=== PATIENT | male | born 1995 ===

== ENCOUNTER 2018-10-06 10:55 | Emergency (ER) | payer MEDICAID ==
[2018-10-06 11:03] VITALS: RESP 18; O2SAT 100
--- NOTE | 2018-10-06 11:47 | C.PDOC ---
History Of Present Illness 23 y/o male presents to ED for evaluation of umbilical pain x 5 days. Patient states he visited his primary care doctor, Dr. Snyder, who told him to get MRI. Patient not given any antibiotics. MRI appointment is on 10/11/18. He reports drainage today and is the reason for his ED visit. He denies trauma/injury, fever, chills, headache, dizziness, chest pain, SOB, nausea, or vomiting. Time Seen by Provider: 10/06/18 11:06 Chief Complaint (Nursing): Abnormal Skin Integrity History Per: Patient History/Exam Limitations: no limitations Onset/Duration Of Symptoms: Days Current Symptoms Are (Timing): Still Present Past Medical History Reviewed: Historical Data, Nursing Documentation, Vital Signs Vital Signs: Last Vital Signs Temp 98.4 F 10/06/18 11:00 Pulse 96 H 10/06/18 11:00 Resp 18 10/06/18 11:00 BP 138/92 H 10/06/18 11:00 Pulse Ox 100 10/06/18 11:00 Family History: States: No Known Family Hx - Social History Hx Tobacco Use: No Hx Alcohol Use: No Hx Substance Use: No - Immunization History Hx Tetanus Toxoid Vaccination: No Hx Influenza Vaccination: No Hx Pneumococcal Vaccination: No Review Of Systems Constitutional: Negative for: Fever, Chills Gastrointestinal: Positive for: Abdominal Pain. Negative for: Nausea, Vomiting, Diarrhea Skin: Positive for: Other (umbilical pain with drainage). Negative for: Rash Neurological: Negative for: Weakness, Headache Physical Exam - Physical Exam Appears: Non-toxic, No Acute Distress Skin: Warm, Dry Head: Atraumatic, Normacephalic Eye(s): bilateral: Normal Inspection Neck: Normal ROM, Supple Chest: Symmetrical Cardiovascular: Rhythm Regular, No Murmur Respiratory: Normal Breath Sounds, No Wheezing Gastrointestinal/Abdominal: Soft, No Guarding, No Rebound, Other (purulent drainage from the inferior umbilicus, no surrounding erythema; induration noted upon palpation surrounding the umbilicus possibly due to abscess formation) Extremity: Bilateral: Atraumatic, Normal Color And Temperature, Normal ROM Neurological/Psych: Oriented x3, Normal Speech, Normal Motor, Normal Sensation Gait: Steady ED Course And Treatment O2 Sat by Pulse Oximetry: 100 (RA) Pulse Ox Interpretation: Normal Medical Decision Making Medical Decision Making: Patient offered I&D but patient refused, would prefer to take antibiotics and pain medication. Wound culture collected and sent to lab. Dose of Clindamycin and Tylenol given now Contacted Dr. Snyder and left a message; call was not returned Patient instructed to follow up with PMD. Patient has a pending appointment for MRI ordered by Dr. Snyder for 10/11/18. patient stable for discharge Disposition Counseled Patient/Family Regarding: Studies Performed, Diagnosis, Need For Followup, Rx Given - Disposition Referrals: Zeeshan Snyder, JOAN, PRETZEL TWISTING MACHINE OPERATOR [Advanced Practice Nurse] - Disposition: HOME/ ROUTINE Disposition Time: 12:15 Condition: STABLE Additional Instructions: Continue meds as prescribed Clean wound clean and dry Keep scheduled appt for MRI but follow up with Dr. Snyder to see if this is still necessary Return to ED if symptoms worsen Prescriptions: Acetaminophen [Tylenol] 650 mg PO Q8 PRN #30 capsule PRN Reason: Pain, Moderate (4-7) Clindamycin [Cleocin] 300 mg PO TID 10 Days #29 cap Instructions: Skin Abscess Forms: [employer] (Norwegian) - Clinical Impression Clinical Impression: Skin irritation, Umbilical pain, Abscess - PA / TURNING SANDER OPERATOR / Resident Statement MD/DO has reviewed & agrees with the documentation as recorded. - Scribe Statement The provider has reviewed the documentation as recorded by the Alexibgonzales El All medical record entries made by the Nori were at my direction and personally dictated by me. I have reviewed the chart and agree that the record accurately reflects my personal performance of the history, physical exam, medical decision making, and the department course for this patient. I have also personally directed, reviewed, and agree with the discharge instructions and disposition.
--- NOTE | 2018-10-06 12:10 | C.PDOC ---
Time Seen by Provider: 10/06/18 11:06 Chief Complaint (Nursing): Abnormal Skin Integrity Past Medical History Vital Signs: Last Vital Signs Temp 98.4 F 10/06/18 11:00 Pulse 96 H 10/06/18 11:00 Resp 18 10/06/18 11:00 BP 138/92 H 10/06/18 11:00 Pulse Ox 100 10/06/18 12:01 Family History: States: No Known Family Hx - Social History Hx Tobacco Use: No Hx Alcohol Use: No Hx Substance Use: No - Immunization History Hx Tetanus Toxoid Vaccination: No Hx Influenza Vaccination: No Hx Pneumococcal Vaccination: No ED Course And Treatment O2 Sat by Pulse Oximetry: 100 (RA) Disposition Counseled Patient/Family Regarding: Studies Performed, Diagnosis, Need For Followup, Rx Given - Disposition Referrals: Zeeshan Snyder, JOAN, THEATRICAL DRESSER [Advanced Practice Nurse] - Disposition: HOME/ ROUTINE Disposition Time: 12:04 Condition: STABLE Additional Instructions: Continue meds as prescribed Clean wound clean and dry Keep scheduled appt for MRI but follow up with Dr. Snyder to see if this is still necessary Return to ED if symptoms worsen Prescriptions: Acetaminophen [Tylenol] 650 mg PO Q8 PRN #30 capsule PRN Reason: Pain, Moderate (4-7) Clindamycin [Cleocin] 300 mg PO TID 10 Days #29 cap Instructions: Skin Abscess Forms: [employer] (Mongolian) - Clinical Impression Clinical Impression: Skin irritation, Umbilical pain, Abscess
[2018-10-06 12:14] VITALS: BP 113/71; PULSE 85; TEMP 98.5
== END 2018-10-06 12:17 | disposition home or self-care (01) ==
LOC: C.ER 10:55
DX: R10.33 Periumbilical pain (principal); L02.211 Cutaneous abscess of abdominal wall; L29.9 Pruritus, unspecified

== ENCOUNTER 2018-10-13 17:19 | Emergency (ER) | payer MEDICAID ==
[2018-10-13 17:31] VITALS: TEMP 98.8; O2SAT 100
[2018-10-13] MEDS ORDERED: Lidocaine 2% PF (10 ml) Amp EPI STA (17:48)
[2018-10-13] MEDS ORDERED: Lidocaine Hydrochloride 5 ML INJ ONE ×2 (17:53→19:01)
--- NOTE | 2018-10-13 20:22 | C.PDOC ---
History Of Present Illness 23 year old male returns to the emergency department with complaints of pain and distention to belly button despite antibiotic treatment last week. He states that his symptoms worsening noting protrusion of umbilicus and continued drainage. Patient denies following-up with a PMD or getting an MRI due to lack of prior authorization. He denies any other complaints. Of note, patient refused I&D on previous visit. Chief Complaint (Nursing): Abnormal Skin Integrity History Per: Patient History/Exam Limitations: no limitations Onset/Duration Of Symptoms: Days Current Symptoms Are (Timing): Worse Location Of Injury: Anterior: Abdomen Quality Of Symptoms: Painful, Swollen, Draining. denies: Itching Past Medical History Reviewed: Historical Data, Nursing Documentation, Vital Signs Vital Signs: Last Vital Signs Temp 98.8 F 10/13/18 17:29 Pulse 82 10/13/18 17:29 Resp 18 10/13/18 17:29 BP 133/57 L 10/13/18 17:29 Pulse Ox 100 10/13/18 17:29 Primary Care Provider: Non [facility] Provider, - Medical History PMH: No Chronic Diseases Surgical History: No Surg Hx Family History: States: No Known Family Hx - Social History Hx Tobacco Use: No Hx Alcohol Use: No Hx Substance Use: No - Immunization History Hx Tetanus Toxoid Vaccination: No Hx Influenza Vaccination: No Hx Pneumococcal Vaccination: No Review Of Systems Constitutional: Negative for: Fever, Chills Cardiovascular: Negative for: Chest Pain Respiratory: Negative for: Cough, Shortness of Breath Gastrointestinal: Negative for: Nausea, Vomiting, Abdominal Pain, Diarrhea Genitourinary: Negative for: Dysuria, Incontinence Musculoskeletal: Negative for: Back Pain Skin: Positive for: Other (abscess). Negative for: Rash, Bruising Neurological: Negative for: Weakness, Headache, Dizziness Physical Exam - Physical Exam Appears: Non-toxic, No Acute Distress Skin: Warm, Dry Head: Atraumatic, Normacephalic Eye(s): bilateral: Normal Inspection Oral Mucosa: Moist Neck: Normal ROM, Supple Chest: Symmetrical Cardiovascular: Rhythm Regular Respiratory: Normal Breath Sounds, No Wheezing Gastrointestinal/Abdominal: Tenderness (to palpation at the umbilicus), Distention (of umbilicus, possible due to abscess or sebaceous cyst. ), No Guarding, No Rebound, Other (slight erythema to the umbilicus, scant drainage noted inferiorly at the base of the umbilicus; induration noted as well surrounding umbilicus) Extremity: Normal ROM Extremity: Bilateral: Atraumatic Neurological/Psych: Oriented x3, Normal Speech, Normal Cognition, Normal Motor, Normal Sensation Gait: Steady ED Course And Treatment O2 Sat by Pulse Oximetry: 100 (RA) Pulse Ox Interpretation: Normal - Incision & Drainage Of Abscess Anesthesia: Lidocaine 1% Prep Used: Sterile Water, Betadine Procedure: Incised W/Scalpel Blade#: (15), Drained Pus, Probed To Break Up L oculations, Packed W/Gauze, Cultures Obtained And Sent To Lab (on last visit - Strep anginosus grew- more sensitive to Cephalosporins- will switch to Keflex) Medical Decision Making Medical Decision Making: Plan:Tylenol given I&D performed by myself and Dr. Durbin Patient still experiencing pain Toradol 60m IM given Keflex 500mg PO given based on wound culture Patient advised to discontinue other antibiotics recommended probiotics patient to return in 2 days for wound check Patient verbalizes understanding and is in agreement with plan. Patient is stable for discharge. Disposition Counseled Patient/Family Regarding: Diagnosis, Need For Followup, Rx Given - Disposition Referrals: Zeeshan Snyder, DNP, BOILER WATER TESTER [Advanced Practice Nurse] - [facility] [Outside] Disposition: HOME/ ROUTINE Disposition Time: 20:20 Condition: IMPROVED Additional Instructions: Stop Clindamycin and start Keflex BID for 7 more days Motrin or Tylenol as needed for pain Keep wound clean and dry Return in 2 days for wound check Prescriptions: Cephalexin [Keflex] 500 mg PO QID #27 capsule Ibuprofen [Motrin] 600 mg PO Q6 PRN #30 tab PRN Reason: Pain, Moderate (4-7) Instructions: Abscess Incision and Drainage Forms: [employer] (Armenian) - Clinical Impression Clinical Impression: Umbilical pain, Abscess - PA / PRINCIPAL SYSTEMS ENGINEER / Resident Statement MD/DO has reviewed & agrees with the documentation as recorded. MD/DO has examined the patient and agrees with the treatment plan. - Scribe Statement The provider has reviewed the documentation as recorded by the Scribe (Grzegorz Sheldon) All medical record entries made by the Scribe were at my direction and personally dictated by me. I have reviewed the chart and agree that the record accurately reflects my personal performance of the history, physical exam, medical decision making, and the department course for this patient. I have also personally directed, reviewed, and agree with the discharge instructions and disposition.
[2018-10-13 20:31] VITALS: BP 128/79; PULSE 81; RESP 16
== END 2018-10-13 20:31 | disposition home or self-care (01) ==
LOC: C.ER 17:19
DX: L02.211 Cutaneous abscess of abdominal wall (principal); R10.33 Periumbilical pain
CPT/HCPCS: 10060; 96372; 99283; J1885

== ENCOUNTER 2018-10-15 15:25 | Emergency (ER) | payer MEDICAID ==
[2018-10-15 15:38] VITALS: BP 123/86; PULSE 96; TEMP 97.4; O2SAT 100
--- NOTE | 2018-10-15 16:14 | C.PDOC ---
History Of Present Illness 23-year-old male presents to the ED for a wound check. Patient underwent an incision and drainage of a periumbilical cyst/abscess two days ago. He states he has been taking Keflex as prescribed and presents for wound check as instructed. Patient denies fever, chills. Time Seen by Provider: 10/15/18 15:38 Chief Complaint (Nursing): Wound Check History Per: Patient History/Exam Limitations: no limitations Onset/Duration Of Symptoms: Days Ago (2) Current Symptoms Are (Timing): Better Quality Of Symptoms: denies: Painful, Itching, Swollen, Draining Additional History Per: Patient Past Medical History Reviewed: Historical Data, Nursing Documentation, Vital Signs Vital Signs: Last Vital Signs Temp 97.4 F L 10/15/18 15:29 Pulse 96 H 10/15/18 15:29 Resp 18 10/15/18 15:29 BP 123/86 10/15/18 15:29 Pulse Ox 100 10/15/18 15:29 Primary Care Provider: Zeeshan Snyder - Medical History PMH: No Chronic Diseases Surgical History: No Surg Hx Family History: States: Unknown Family Hx - Social History Hx Tobacco Use: No Hx Alcohol Use: No Hx Substance Use: No - Immunization History Hx Tetanus Toxoid Vaccination: No Hx Influenza Vaccination: No Hx Pneumococcal Vaccination: No Review Of Systems Constitutional: Negative for: Fever, Chills Skin: Positive for: Other (wound check ) Physical Exam - Physical Exam Appears: Non-toxic, No Acute Distress Skin: Normal Color, Warm, Dry, Other (2cm of induration circumferential to wound. able to express slight amt pus when pressed ) Head: Atraumatic, Normacephalic Extremity: Normal ROM Neurological/Psych: Oriented x3, Normal Speech, Normal Cognition ED Course And Treatment O2 Sat by Pulse Oximetry: 100 (on RA ) Pulse Ox Interpretation: Normal Medical Decision Making Medical Decision Making: Area was re-packed. Rx of Bactrim added to patient's existing prescriptions. On reassessment, patient is resting comfortably, showing no signs of distress and is stable for discharge. Patient is advised to f/u with general surgery or ER within 2-3 days for repeat wound check. Disposition - Disposition Referrals: Owen Daniels MD [Staff Provider] - Disposition: HOME/ ROUTINE Disposition Time: 16:12 Condition: GOOD Additional Instructions: Apply warm compresses to umbilical area several times a day. Continue Keflex, and start taking Bactrim as well. Try to make soonest appointment with Dr Daniels, surgeon for further evaluation. If unable to see him on or Tue. Return to ER for wound check. Prescriptions: Sulfamethoxazole/Trimethoprim [Bactrim DS 800 mg-160 mg] 1 tab PO BID #20 tab Instructions: Skin Abscess Forms: [employer] (Lithuanian) - Clinical Impression Clinical Impression: Abscess of umbilicus, Wound check, abscess - PA / NUT SHELLER MACHINE OPERATOR / Resident Statement MD/DO has reviewed & agrees with the documentation as recorded. - Scribe Statement The provider has reviewed the documentation as recorded by the Scribe (Xin Mosley) All medical record entries made by the Scribe were at my direction and personally dictated by me. I have reviewed the chart and agree that the record accurately reflects my personal performance of the history, physical exam, medical decision making, and the department course for this patient. I have also personally directed, reviewed, and agree with the discharge instructions and disposition.
[2018-10-15 16:27] VITALS: RESP 20
== END 2018-10-15 16:26 | disposition home or self-care (01) ==
LOC: C.ER 15:25
DX: Z48.00 Encounter for change or removal of nonsurgical wound dressing (principal); L02.216 Cutaneous abscess of umbilicus